=== PATIENT | male | born 1960 | race Caucasian/White ===

== ENCOUNTER 2016-11-29 16:51 | Emergency (ER) | payer OTHER ==
[2016-11-29 17:26] VITALS: BP 144/92; PULSE 92; RESP 16; TEMP 98.1; O2SAT 95
--- NOTE | 2016-11-29 18:02 | UCPHY ---
H & P Patient Type: New Chief Complaint Nursing Narrative: Rt 2nd toe nail,pain,swelling and erythema x2 days. Denies fever Time Seen by Provider: 11/29/16 17:47 HPI/ROS: CHIEF COMPLAINT: Ingrown toenail HISTORY OF PRESENT ILLNESS: The patient is a 56-year-old man who comes to the Urgent Care complaining of the toenail on his right 2nd digit. He states that it began about a week ago. He was able to remove piece of toenail that seemed to be causing problems however his toe has continued to hurt. It is erythematous and slightly swollen. It is very tender he states that it even hurts to rub against that she eats when he is trying to sleep. He has not had a fever. Denies any trauma. REVIEW OF SYSTEMS: Constitutional: denies: chills, fever, recent illness, recent injury EENTM: denies: blurred vision, double vision, nose congestion Respiratory: denies: cough, shortness of breath Cardiac: denies: chest pain, irregular heart rate, lightheadedness, palpitations Gastrointestinal/Abdominal: denies: abdominal pain, diarrhea, nausea, vomiting, blood streaked stools Genitourinary: denies: dysuria, frequency, hematuria, pain Musculoskeletal: See HPI Skin: denies: lesions, rash, jaundice, bruising Neurological: denies: headache, numbness, paresthesia, tingling, dizziness, weakness Hematologic/Lymphatic: denies: blood clots, easy bleeding, easy bruising Immunologic/allergic: denies: HIV/AIDS, transplant EXAM: GENERAL: Well-appearing, well-nourished and in no acute distress. HEAD: Atraumatic, normocephalic. EYES: Pupils equal round and reactive to light, extraocular movements intact, sclera anicteric, conjunctiva are normal. ENT: TMs normal, nares patent, oropharynx clear without exudates. Moist mucous membranes. NECK: Normal range of motion, supple without lymphadenopathy or JVD. LUNGS: Breath sounds clear to auscultation bilaterally and equal. No wheezes rales or rhonchi. HEART: Regular rate and rhythm without murmurs, rubs or gallops. ABDOMEN: Soft, nontender, normoactive bowel sounds. No guarding, no rebound. No masses appreciated. BACK: No CVA tenderness, no spinal tenderness, step-offs or deformities EXTREMITIES: Erythematous distal toe surrounding toenail, primarily around medial aspect. Visible nail abnormality. No sign of trauma. No tenderness to tuft. No sign of felon. No obvious paronychia NEUROLOGICAL: Cranial nerves II through XII grossly intact. Normal speech, normal gait. 5/5 strength, normal movement in all extremities, normal sensation PSYCH: Normal mood, normal affect. SKIN: Warm, dry, normal turgor, no visible rashes or lesions. Source: Patient Exam Limitations: No limitations - Personal History Current Tetanus Diphtheria and Acellular Pertussis (TDAP): Yes Tetanus Vaccine Date: 2015 - Medical/Surgical History Hx Asthma: No Hx Chronic Respiratory Disease: No Hx Diabetes: No Hx Cardiac Disease: No Hx Renal Disease: No Hx Cirrhosis: No Hx Alcoholism: No Hx HIV/AIDS: No Hx Splenectomy or Spleen Trauma: No Other PMH: med hx-none. Surg-microdiscotomy - Family History Significant Family History: No pertinent family hx - Social History Smoking Status: Never smoked Alcohol Use: Sober Drug Use: None Constitutional: Initial Vital Signs Temperature (C) 36.7 C 11/29/16 17:21 Heart Rate 92 11/29/16 17:21 Respiratory Rate 16 11/29/16 17:21 Blood Pressure 144/92 H 11/29/16 17:21 O2 Sat (%) 95 11/29/16 17:21 O2 Delivery Mode Room Air Allergies/Adverse Reactions: No Known Allergies Allergy (Verified 11/29/16 17:20) Home Medications: Medication Instructions Recorded Cephalexin [Keflex] 500 mg PO TID #21 cap 11/29/16 Hydrocodone/APAP 5/325 [[place] 1 - 2 tab PO Q4H PRN #7 tab 11/29/16 5/325 (RX)] Lisinopril 11/29/16 Multi-Day Vitamins 11/29/16 Medical Decision Making Procedures: Procedure: Paronychia drainage. The patient's infection was located on the toe. I obtained verbal consent from the patient to drain the abscess who was informed about the possibility of bleeding and pain. his toes numbed with a digital block 0.5% bupivacaine. The paronychia was incised with scissors no purulent drainage was expressed. The patient tolerated the procedure well. The procedure was performed by myself. ED Course/Re-evaluation: No purulence draining from infection. Does not appear to be a felon. Was likely a paronychia or infected toenail that was surgically care for the patient prior to arrival. I will start him on Keflex and he is requesting a short dose of Vicodin. Departure - Departure Disposition: Home, Routine, Self-Care Clinical Impression: Paronychia Qualifiers: Laterality: right Qualified Code(s): L03.011 - Cellulitis of right finger Condition: Fair Instructions: Paronychia (ED) Referrals: MAC HOOKS [Primary Care Provider] - As per Instructions Prescriptions: Cephalexin [Keflex] 500 mg PO TID #21 cap Hydrocodone/APAP 5/325 [[place] 5/325 (RX)] 1 - 2 tab PO Q4H PRN #7 tab PRN Reason: Pain, Moderate - PQRS PQRS Measurement: Not applicable
== END 2016-11-29 18:39 | disposition home or self-care (01) ==
LOC: CED 16:51
PROC: 0H9FXZZ Drainage of Right Hand Skin, External Approach (ICD-10-PCS; principal; 2016-11-29)
DX: L03.031 Cellulitis of right toe (principal)
CPT/HCPCS: G0463-PO